=== PATIENT | female | born 1995 | race Caucasian/White ===

== ENCOUNTER 2018-08-30 18:09 | Emergency (ER) | payer MEDICAID ==
[~2018-08-30] VITALS: Ht 162.6 cm; Wt 59.4 kg
[2018-08-30 18:18] VITALS: Ht 162.6 cm; Wt 59.4 kg
[2018-08-30 19:23] LABS: AMPHETAMINE QUAL UR POSITIVE (See below)
[2018-08-30 19:37] LABS: BASOPHIL % 0.2 % (0-2); PLATELET COUNT 266 x10^3mcL (130-400)
[2018-08-30 19:40] LABS: RED CELL DISTRIBUTION WIDTH 19.3 % (11.5-14.5)
[2018-08-30 19:41] LABS: CALCIUM 9.3 mg/dL (8.5-10.1); CARBON DIOXIDE 25.8 mmol/L (21-32); CHLORIDE SERUM 104 mmol/L (98-107); CREATININE SERUM 0.6 mg/dL (0.6-1.0); GFR1 > 60 mL/min; GLUCOSE SERUM 89 mg/dL (74-106); POTASSIUM SERUM 3.9 mmol/L (3.5-5.1); SODIUM SERUM 138 mmol/L (136-145)
[2018-08-30 21:20] VITALS: BP 119/93
== END 2018-08-30 21:51 | disposition short-term general hospital (02) ==
LOC: ED 18:09
PROVIDERS: Emergency Medicine
DX: O75.9 Complication of labor and delivery, unspecified (principal); F15.10 Other stimulant abuse, uncomplicated; F10.20 Alcohol dependence, uncomplicated; Z37.0 Single live birth; Z3A.40 40 weeks gestation of pregnancy
CPT/HCPCS: 36415; G0480; J2210; J2590; J7030